=== PATIENT | male | born 1950 | race Caucasian/White ===

== ENCOUNTER → 2019-09-24 | Outpatient (CLI) | payer OTHER | LOC: SLEEP 12:33 | PROVIDERS: ATTEND Internal Medicine Hematology | DX: R42 Dizziness and giddiness (principal); H53.8 Other visual disturbances | CPT/HCPCS: 95812 ==

== ENCOUNTER → 2020-04-22 | Outpatient (CLI) | payer OTHER ==
[~2020-04-22] MED LIST: GADOBENATE DIMEGLUMINE 1 ML IV ONE; SODIUM CHLORIDE 0.9% 100 ML ONE
[2020-04-22 13:18] LABS: BLOOD UREA NITROGEN 11 mg/dL (7-26); BUN/CREATININE RATIO 13 (6-25); CREATININE, SERUM 0.85 mg/dL (0.72-1.25); EST GLOMERULAR FILTRATION RATE > 60 ML/MIN (60-)
[2020-04-22 14:43] LABS: BASOPHILS % 0.5 % (0.0-1.0); EOSINOPHILS % 0.5 % (0.0-6.0); HEMATOCRIT 39.3 % (38.2-49.6); HEMOGLOBIN 13.7 g/dL (14.0-18.0); LYMPHOCYTES # (AUTO) 1.1 (1.0-3.2); LYMPHOCYTES % 27.5 % (18.0-39.1); MEAN CORPUSCULAR HEMOGLOBIN 31.9 pg (28-32); MEAN CORPUSCULAR HGB CONC 34.9 g/dL (31-35); MEAN CORPUSCULAR VOLUME 91.6 fL (81-99); MONOCYTES # (AUTO) 0.4 (0.2-0.8); MONOCYTES % 9.7 % (4.4-11.3); NEUTROPHILS # (AUTO) 2.5 (2.1-6.9); NEUTROPHILS % 61.3 % (38.7-80.0); PLATELET COUNT 92 x10e3/uL (140-360); RED BLOOD COUNT 4.29 x10e6/uL (4.3-5.7); RED CELL DISTRIBUTION WIDTH 13.2 % (11.7-14.4)
[2020-04-22 14:56] LABS: INR 0.95; PROTHROMBIN TIME 13.2 seconds (11.9-14.5)
--- NOTE | 2020-04-23 07:32 | Diagnostic Imaging Report ---
MRI abdomen without and with contrast History: Cirrhosis of liver Comparison: None Technique: Multiplanar and multisequence MRI images of the abdomen were obtained without and subsequently following the administration of intravenous gadolinium. Findings: The liver is cirrhotic. No hepatic mass is appreciated. There are no suspicious foci of enhancement within the liver. The central hepatic veins are patent. The central portal veins are patent. The main portal vein measures up to 12 mm in caliber. There are small esophageal varices, suggesting portal hypertension. The spleen is normal in size, without focal abnormality. The spleen measures 13 mm in craniocaudal dimension. There are nonenhancing scattered T2 hyperintense lesions throughout the pancreas measuring up to 8 mm in size. No pancreatic ductal dilation. No solid pancreatic mass is identified. Unremarkable appearance of the adrenal glands. A subcentimeter cyst is noted at the inferior pole of the left kidney. No hydronephrosis is identified. The kidneys are otherwise unremarkable. No abdominal lymphadenopathy is identified. No free fluid is seen. The visualized bowel loops appear normal in caliber. No abnormal bony enhancement is identified. Impression: 1. Cirrhosis, without evidence of hepatocellular carcinoma. 2. Small esophageal varices, suggesting portal hypertension. 3. There are scattered subcentimeter, nonenhancing cystic lesions with the pancreas, which probably represent multiple intraductal papillary mucinous neoplasms. (IPMNs). Recommend 12 month follow-up study to assess for stability. Signed by: Adrian Wahl MD on 04/23/2020 7:29 AM
== END ==
LOC: MRI 12:41
PROVIDERS: ATTEND Registered Nurse
DX: R18.8 Other ascites (principal); K74.60 Unspecified cirrhosis of liver; Z12.9 Encounter for screening for malignant neoplasm, site unspecified
CPT/HCPCS: 36415; 74183; 82105; 82565; 84520; 85025; 85610; A9577; J7050